=== PATIENT | male | born 1940 | race Caucasian/White ===

== ENCOUNTER 2020-02-10 15:55 | Inpatient (IN) | payer MEDICARE, OTHER ==
[~2020-02-10] VITALS: Ht 170.2 cm; Wt 88.5 kg
--- NOTE | 2020-02-10 16:23 | NUR ---
BIBS FROM HOME TO ER BED 5. AAOX3. NOT IN RESP DISTRESS. BROUGHT IN FOR FEVER THAT STARTED THIS MORNING. PT IS NOTED WITH 101.2 TEMP UPON ASSESSMENT. SON REPORTS THAT PT HAS TOOK TYLENOL @ NOON TIME. PT IS ALSO NOTED WITH COUGH. MD WAS AT THE BEDSIDE FOR EVAL. ORDERS RECEIVED, NOTED AND CARRIED OUT. IV LINE ESTABLISHED ON L HAND 18G. BLOOD DRAWN AND GIVEN TO ADMINISTRATIVE SERVICES ASSISTANT AT BEDSIDE.
--- NOTE | 2020-02-10 16:53 | NUR ---
URINE COLLECTED AND SENT TO LAB
[2020-02-10 16:55] LABS: BASOPHILS % (AUTO) 0.1 % (0.0-2.0); EOSINOPHILS % (AUTO) 0.5 % (0.0-6.0); HEMATOCRIT 27 % (39-51); HEMOGLOBIN 9.2 g/dL (13.5-17.5); LYMPHOCYTES # (AUTO) 0.4 /CMM (0.8-4.8); LYMPHOCYTES % (AUTO) 20.9 % (20.0-44.0); MEAN CORPUSCULAR HGB CONC 34 g/dl (31.0-36.0); MEAN CORPUSCULAR VOLUME 94 fL (80-96); MONOCYTES # (AUTO) 0.2 /CMM (0.1-1.30); MONOCYTES % (AUTO) 8.5 % (2.0-12.0); NEUTROPHILS # (AUTO) 1.4 /CMM (1.8-8.9); RED BLOOD CELL COUNT(AUTO) 2.88 MIL/uL (4.5-6.0)
[2020-02-10] MEDS ORDERED: VANCOMYCIN 1 GM in IV D5W 250 ML IV ONE (17:00)
[2020-02-10] MEDS ORDERED: PIPERACILLIN /TAZOBACTAM 3.375 G in IV D5W 50 ML IV ONE (17:00)
[2020-02-10] MEDS ORDERED: ACETAMINOPHEN ES 500 MG TABLET PO ONE (17:00)
[2020-02-10] MEDS ORDERED: TELM80TA9 PO (17:03)
[2020-02-10] MEDS ORDERED: AMLO10TA7 PO (17:03)
[2020-02-10] MEDS ORDERED: ISOS60TA4 PO (17:03)
[2020-02-10] MEDS ORDERED: FERR325T24 PO (17:03)
[2020-02-10] MEDS ORDERED: POTA8TAB3 PO (17:03)
[2020-02-10] MEDS ORDERED: ROSU40TA23 PO (17:03)
[2020-02-10] MEDS ORDERED: CLOP75TA15 PO (17:03)
[2020-02-10] MEDS ORDERED: GLIM2TAB31 PO (17:03)
[2020-02-10] MEDS ORDERED: SERT50TA12 PO (17:03)
[2020-02-10] MEDS ORDERED: ACETAMINOPHEN ES 500 MG TABLET ONE (17:04)
[2020-02-10 17:16] LABS: PLATELET COUNT (AUTO) 40 /CMM (150-450)
[2020-02-10 17:24] LABS: BILIRUBIN,URINE Negative (NEGATIVE); BLOOD, URINE Moderate Ery/uL (NEGATIVE); COLOR,URINE Yellow (YELLOW); KETONES,URINE Negative (NEGATIVE); LEUKOCYTE ESTERASE ,URINE Negative (NEGATIVE); NITRITE, URINE Negative (NEGATIVE); PH,URINE 5.5 (5.0-8.0); PROTEIN,URINE 100 mg/dl (NEGATIVE); UGLUCOSE Negative (NEGATIVE); UROBILINOGEN,URINE 0.2 EU/dL (0.2)
[2020-02-10 17:25] LABS: CALCIUM, SERUM 7.2 mg/dL (8.5-10.1); CARBON DIOXIDE 13 mmol/L (21-32); CHLORIDE 110 mmol/L (98-107); CREATININE 4.5 mg/dL (0.6-1.3); GLUCOSE 154 mg/dL (74-106); POTASSIUM 3.9 mmol/L (3.5-5.1); SODIUM SERUM 140 mmol/L (136-145); UREA NITROGEN, BLOOD 43 mg/dL (7-18)
[2020-02-10 17:28] LABS: APPEARANCE,URINE SLIGHTLY HAZY (CLEAR)
--- NOTE | 2020-02-10 17:28 | NUR ---
CALLED NURSING SUP FOR TELE BED.
[2020-02-10 17:31] LABS: ALANINE AMINOTRANSFERASE 14 U/L (12-78); ALBUMIN 3.1 g/dL (3.4-5.0); ALKALINE PHOSPHATASE 67 U/L (46-116); ASPARTATE AMINOTRANSFERASE 22 U/L (15-37); BILIRUBIN,DIRECT 0.1 mg/dL (0.0-0.2); BILIRUBIN,TOTAL 0.3 mg/dL (0.2-1.0); TOTAL PROTEIN, SERUM 7.7 g/dL (6.4-8.2)
[2020-02-10 17:51] LABS: BACTERIA,URINE Few /HPF (None Seen); SQUAMOUS EPITHELIAL CELL,UR Few /HPF (None Seen)
[2020-02-10 17:52] LABS: WBC,URINE 0-2 /HPF (0-3)
[2020-02-10] MEDS ORDERED: Z GUARD REMEDY 2 OZ OINT TP PRN (18:30)
[2020-02-10] MEDS ORDERED: TEMAZEPAM 7.5 MG CAPSULE PO PRN (18:30)
[2020-02-10] MEDS ORDERED: MAGNESIUM HYDROXIDE 30 ML UDC PO PRN (18:30)
[2020-02-10] MEDS ORDERED: ONDANSETRON HCL/PF 4 MG/2 ML VIAL IVP PRN (18:30)
[2020-02-10] MEDS ORDERED: MORPHINE SULFATE INJ 2 MG/ML DISP.SYRIN IV PRN (18:30)
[2020-02-10] MEDS ORDERED: MAG HYDROX/AL HYDROX/SIMETH 30 ML UDC PO PRN (18:30)
[2020-02-10] MEDS ORDERED: HYDROCODONE/APAP 5/325MG TABLET PO PRN (18:30)
[2020-02-10] MEDS ORDERED: DEXTROSE 50%-WATER 50 ML DISP.SYRIN IV PRN (19:00)
[2020-02-10 19:46] LABS: BAND % (MANUAL) 1 % (0.0-5.0); LYMPHOCYTES % (MANUAL) 24 % (16-48); MONOCYTES % (MANUAL) 2 % (0-11.0); NEUTROPHILS % (MANUAL) 73 (42-76)
--- NOTE | 2020-02-10 19:59 | NUR ---
PT TO RADIOLOGY ON [facility]
--- NOTE | 2020-02-10 20:04 | NUR ---
BED ASSIGNMENT 207
--- NOTE | 2020-02-10 20:12 | NUR ---
REPORT GIVEN TO MARLEN BANERJEE FOR RAMIRO.
[2020-02-10 20:30] VITALS: BP 126/64
--- NOTE | 2020-02-10 20:30 | NUR ---
ADDING MACHINE SERVICER ADMITTING NOTE: Received report from ER nurse, Niall. Patient admitted in the unit at 2030 via gurney. Patient awake, alert, and oriented x4. Indonesian speaking, understand some Kyrgyz. Able to make needs known. Oriented patient to room and taught patient how to use the call light. Patient was able to verbally confirm the teaching. Patient breathing well on Oxygen, 4L nasal canula. No respiratory distress noted. Noted IV access on left hand, 20 gauge, patent, dressing is intact, no redness or infiltration. Noted left sided upper and lower extremity weakness. On external cardiac monitoring. Patient refused to remove home cloths. Safety precaution is in place, bed is in the lowest level, brakes are on, alarm is on, side rails x2 are up, and call light is within reach. Will continue to monitor.
--- NOTE | 2020-02-10 20:37 | NUR ---
PT TRANSPORTED TO UNIT ON GURNEY WITH EMT AND RN AT BEDSIDE W/ ACLS PROTOCOL. NAD NOTED DURING TRANSPORT.
[2020-02-10] MEDS ORDERED: VANCOMYCIN 1.25 GM in IV D5W 250 ML IV SCH (21:00)
[2020-02-10] MEDS: PIPERACILLIN /TAZOBACTAM 2.25 G in IV D5W 50 ML IV SCH (21:22)
[2020-02-10] MEDS ORDERED: ATORVASTATIN 40 MG TABLET PO SCH (22:00)
[2020-02-10] MEDS: VANCOMYCIN 1.25 GM in IV D5W 250 ML IV SCH (22:02)
[2020-02-10] MEDS: BLOOD SUGAR DIAGNOSTIC 1 EACH STRIP IN SCH (22:37)
[2020-02-10] MEDS: INSULIN REGULAR, HUMAN 100 UNIT/ML 3 ML VIAL SQ PRN (22:38)
--- NOTE | 2020-02-10 22:40 | NUR ---
CHARACTER ARTIST NTOE: Patient glucose 121. Hold insulin per sliding scale.
[2020-02-11] VITALS (7 sets, daily range): BP systolic 118–147; BP diastolic 58–76
[2020-02-11] MEDS: PIPERACILLIN /TAZOBACTAM 2.25 G in IV D5W 50 ML IV SCH ×3 (05:07→20:55)
[2020-02-11] MEDS: BLOOD SUGAR DIAGNOSTIC 1 EACH STRIP IN SCH ×4 (06:31→22:07)
[2020-02-11] MEDS: INSULIN REGULAR, HUMAN 100 UNIT/ML 3 ML VIAL SQ PRN ×2 (06:32→18:37)
--- NOTE | 2020-02-11 06:32 | NUR ---
GRATING MACHINE OPERATOR NOTE: Patient glucose 120. Hold insulin per sliding scale.
[2020-02-11 06:40] LABS: BASOPHILS % (AUTO) 0.1 % (0.0-2.0); EOSINOPHILS % (AUTO) 0.5 % (0.0-6.0); HEMATOCRIT 26 % (39-51); HEMOGLOBIN 8.5 g/dL (13.5-17.5); LYMPHOCYTES # (AUTO) 0.9 /CMM (0.8-4.8); LYMPHOCYTES % (AUTO) 27.7 % (20.0-44.0); MEAN CORPUSCULAR HGB CONC 33 g/dl (31.0-36.0); MEAN CORPUSCULAR VOLUME 92 fL (80-96); MONOCYTES # (AUTO) 0.2 /CMM (0.1-1.30); MONOCYTES % (AUTO) 5.1 % (2.0-12.0); NEUTROPHILS # (AUTO) 2.1 /CMM (1.8-8.9); NEUTROPHILS % (AUTO) 66.6 % (43.0-81.0); RED BLOOD CELL COUNT(AUTO) 2.78 MIL/uL (4.5-6.0); WHITE BLOOD COUNT (AUTO) 3.1 K/uL (4.3-11.0)
[2020-02-11 06:54] LABS: PLATELET COUNT (AUTO) 35 /CMM (150-450)
--- NOTE | 2020-02-11 07:00 | NUR ---
MEDICAL DIAGNOSTIC RADIOGRAPHER NOTE: Geeta from lab called for critical lab value. Patient platelet 35. Made Robbie SHRESTHA aware, Magen. Awaiting orders.
[2020-02-11 07:06] LABS: CALCIUM, SERUM 7.1 mg/dL (8.5-10.1); CARBON DIOXIDE 15 mmol/L (21-32); CHLORIDE 109 mmol/L (98-107); CREATININE 4.8 mg/dL (0.6-1.3); GLUCOSE 145 mg/dL (74-106); MAGNESIUM 1.9 mg/dL (1.8-2.4); PHOSPHORUS 4.7 mg/dL (2.5-4.9); POTASSIUM 3.7 mmol/L (3.5-5.1); SODIUM SERUM 139 mmol/L (136-145); UREA NITROGEN, BLOOD 46 mg/dL (7-18)
--- NOTE | 2020-02-11 07:15 | NUR ---
BOWLING ALLEY ATTENDANT NOTE: Called Epic exchange and spoke to Dr. Urban regarding patient platelet at 35. Dr. Urban stated no orders at this time and will monitor his platelet.
[2020-02-11 07:17] LABS: CHOLESTEROL 78 mg/dL (<200); HDL CHOLESTEROL 25 mg/dL (40-60); LDL 45 mg/dL (0-99); THYROID STIMULATING HORMONE 0.262 uIU/mL (0.358-3.74); TRIGLYCERIDES 66 mg/dL (30-150)
--- NOTE | 2020-02-11 07:17 | NUR ---
COMMODITY MANAGER CLOSING NOTE: Patient in bed sleeping comfortably. Patient is on Oxygen 4L via nasal canula. Patient is breathing well and is in no apparent respiratory distress. Safety precaution is in place, bed is in the lowest level, bed is locked, side rails x2 are up, bed alarm is on, and call light is within reach. Will endorse to next shift.
--- NOTE | 2020-02-11 07:20 | NUR ---
RN OPENING NOTE: Patient received in bed. Awake, alert and oriented x4. Mainly Latvian/Jordanian speaking but able to relay basic needs in Stateless. Isolation precaution in place to R/O COVID-19. Patient on cont. o2 via NC @ 4lpm and being tolerated well. No SOB and not in respiratory distress, saturation noted at 96%. Tele monitor showing 1st degree AV block @ 78bpm. IV site clean, dry, patent and intact. No pain noted nor reported. Call light in reach. Bed locked, low and at semi-vidal's position. Side rails up x3. Safety ensured and observed. Bed alarm on. Will continue to monitor.
[2020-02-11] MEDS: PANTOPRAZOLE 40 MG TABLET.DR PO SCH (08:00)
[2020-02-11] MEDS ORDERED: FERROUS SULFATE (325 MG) 325 MG/TAB TABLET PO SCH (09:00)
[2020-02-11] MEDS ORDERED: CLOPIDOGREL BISULFATE 75 MG TABLET PO SCH (09:00)
[2020-02-11] MEDS: SERTRALINE HCL 50 MG TABLET PO SCH (10:06)
[2020-02-11] MEDS: AMLODIPINE BESYLATE 10 MG TABLET PO SCH (10:08)
[2020-02-11] MEDS: ISOSORBIDE MONONITRATE (30MG) 30 MG TAB.SR.24H PO SCH (10:08)
[2020-02-11 11:06] LABS: THYROID STIMULATING HORMONE 0.264 uIU/mL (0.358-3.74)
[2020-02-11 11:08] LABS: C-REACTIVE PROTEIN 15.4 mg/dL (0.0-0.9)
--- NOTE | 2020-02-11 12:00 | NUR ---
RN NOTE: Patient was seen by Vinicius Urban DNP. Patient's physician consult orders were put in for him to be further evaluated. Patient's son made aware of the current treatment plans and acknowledged information.
--- NOTE | 2020-02-11 18:45 | NUR ---
rn note: Seen by Sherrie Wright DNP for ID consult. Spoke to son and obtained consent for Convalescent Plasma administration. Angel Kris (Son) called through phone at bedside. Both patient and Son verbalized agreement on administration of CP. consent for BT signed as well as CP form completed to be submitted to pharmacy
--- NOTE | 2020-02-11 18:52 | NUR ---
RN CLOSING NOTE: Patient remains in bed. Awake, alert and oriented x4. Covid-19 resulted and patient is positive. Vinicius Urban, ROEL informed and Angel (son) informed as well. Patient and son are aware about current treatment plan in place. Patient on cont. o2 via NC @ 4lpm and being tolerated well. No SOB and not in respiratory distress at the moment saturation noted at 93%. Tele monitor showing 1st degree AV block @ in the 90s IV site clean, dry, patent and intact. No pain noted nor reported. Call light in reach. Bed locked, low and at semi-vidal's position. Side rails up x3. Safety ensured and observed. Bed alarm on. Due medications given. Treatment given as ordered. Will endorse to oncoming shift for RAMIRO.
[2020-02-11] MEDS: IV NS 0.9% 1,000 ML IV PRN (19:00)
--- NOTE | 2020-02-11 19:30 | NUR ---
DISTRICT WIRE CHIEF NOTES RECEIVED ON BED,A/O X4,SPEAK AMERICAN WITH LITTLE PANAMANIAN,BREATHING REGULAR,NOT IN ANY FORM OF RESPIRATORY DISTRESS.O2 IN USED AT 4L/NC TO KEEP O2 SAT ABOVE 90%.SALINE LOCK RIGHT HAND INTACT AND PATENT.STARTED ON IVF NS AT 125ML/HR RATE WITH ORDER.NOTED RESIDUAL ON LEFT ARM DUE TO HX OF CVA.FALL RISK,BED ALARM,BED ON LOWEST POSITION AND LOCKED.ISOLATION PRECAUTION FOR COVID POSITIVE.CALL LIGHT IN REACH,NEEDS ANTICIPATED.
[2020-02-11] MEDS: ACETAMINOPHEN 325 MG TABLET PO PRN (20:55)
--- NOTE | 2020-02-11 20:55 | NUR ---
STATISTICAL METHODS TEACHER NOTES ORAL TEMP 0F 99.9.SKIN WARM TO THE TOUCH,MEDICATED WITH TYLENOL 650MG PO ORDERED PRN FOR FEVER.
--- NOTE | 2020-02-11 21:15 | NUR ---
LACE WEAVER NOTES ACCU-CHECK BLOOD SUGAR CHECK 130,NO INSULIN COVERAGE.
[2020-02-12] VITALS (19 sets, daily range): BP systolic 67–155; BP diastolic 32–70
--- NOTE | 2020-02-12 01:30 | NUR ---
SUPERVISOR MOTOR VEHICLE ASSEMBLY NOTES FOLLOW UP WITH LAB BLOOD BANK,CONVALESCENT PLASMA IS NOT AVAILABLE YET
--- NOTE | 2020-02-12 03:30 | NUR ---
MARKET ANALYSIS DIRECTOR NOTES ORAL TEMP OF 100.0,MEDICATED WITH TYLENOL 650MG PO ORDERED FOR INCREASED TEMP
[2020-02-12] MEDS: ACETAMINOPHEN 325 MG TABLET PO PRN (03:44)
[2020-02-12] MEDS: PIPERACILLIN /TAZOBACTAM 2.25 G in IV D5W 50 ML IV SCH ×3 (04:48→20:08)
[2020-02-12] MEDS: BLOOD SUGAR DIAGNOSTIC 1 EACH STRIP IN SCH ×4 (05:15→23:17)
[2020-02-12] MEDS: INSULIN REGULAR, HUMAN 100 UNIT/ML 3 ML VIAL SQ PRN ×2 (05:17→23:32)
--- NOTE | 2020-02-12 05:20 | NUR ---
RADIOISOTOPE TECHNOLOGIST NOTES ACCU-CHECK BLOOD SUGAR CHECK 131,PATIENT REFUSED 2 UNITS SLIDING SCALE COVERAGE.IVF INFUSING
--- NOTE | 2020-02-12 06:27 | NUR ---
SUPERVISOR TOY ASSEMBLY NOTES ON BED A/O X3-4,BREATHING NON LABORED,O2 IN USED AT 4L/NC TO KEEP O2 SAT ABOVE 90%,93% AT THE MOMENT.IVF INFUSING,LATEST ORAL TEMP OF 99.2.ENCOURAGED ORAL FLUIDS.NO FALL,NO INJURY.HOB ELEVATED.CALL LIGHT IN REACH,NEEDS ATTENDED.WILL ENDORSE TO SORA[facility] GEE FOR RAMIRO.
--- NOTE | 2020-02-12 06:55 | NUR ---
CABLE REPAIRER NOTES FOLLOWED UP WITH BLOOD BANK,SPOKE TO SIGN REGARDING CONVALESCENT PLASMA,AND SHE SAID NO DELIVERY YET FROM [facility],ENDORSE TO [facility] GEE.
--- NOTE | 2020-02-12 07:30 | NUR ---
RN Opening Note Received patient in bed, AO x 3-4, Barbadian speak, able to responds all stimuli. Noticed wet cough when patient swallowed meds, water. Respiratory even and unlabored with oxygen at 4LPM via n/c. Skin is warm to touch, keep clean.dry, intact IV site on right hand, running NS at 125ml/hr. Kept bed in lock with elevated HOB, for ensure airway and aspiration precaution, and remain lower position of bed fed safety. Will continue to monitor.
[2020-02-12] MEDS: PANTOPRAZOLE 40 MG TABLET.DR PO SCH (07:39)
--- NOTE | 2020-02-12 08:20 | NUR ---
Patient noticed desaturate oxygen 80-82 % with simple mask at 4LPMs, switch to NBM at 15L O2sat 92-95%, also plt 43, troponin 0.705, and failed swallow eval this morning, DNP/Vinicius made cowan above, new order: patient NPO and transfer to ICU but there's no open bed at ICU, will hold patient in MS 2 for while.
[2020-02-12 08:30] LABS: BASOPHILS % (AUTO) 0.1 % (0.0-2.0); EOSINOPHILS % (AUTO) 0.8 % (0.0-6.0); HEMATOCRIT 27 % (39-51); LYMPHOCYTES % (AUTO) 29.9 % (20.0-44.0); MEAN CORPUSCULAR HGB CONC 34 g/dl (31.0-36.0); MEAN CORPUSCULAR VOLUME 91 fL (80-96); MONOCYTES # (AUTO) 0.2 /CMM (0.1-1.30); MONOCYTES % (AUTO) 5.6 % (2.0-12.0); NEUTROPHILS % (AUTO) 63.6 % (43.0-81.0); RED BLOOD CELL COUNT(AUTO) 2.93 MIL/uL (4.5-6.0); WHITE BLOOD COUNT (AUTO) 3.2 K/uL (4.3-11.0)
[2020-02-12] MEDS: IV NS 0.9% 1,000 ML IV PRN (08:51)
[2020-02-12 08:55] LABS: PLATELET COUNT (AUTO) 43 /CMM (150-450)
[2020-02-12] MEDS: ISOSORBIDE MONONITRATE (30MG) 30 MG TAB.SR.24H PO SCH (09:00)
[2020-02-12] MEDS: AMLODIPINE BESYLATE 10 MG TABLET PO SCH (09:00)
[2020-02-12] MEDS: SERTRALINE HCL 50 MG TABLET PO SCH (09:00)
[2020-02-12 09:04] LABS: FERRITIN 314 ng/mL (8-388); THYROID STIMULATING HORMONE 0.274 uIU/mL (0.358-3.74)
[2020-02-12 09:15] LABS: IRON, SERUM 13 ug/dl (50-175); TOTAL IRON BINDING CAPACITY 212 ug/dl (250-450)
[2020-02-12] MEDS: DEXAMETHASONE SOD PHOSPHATE 10 MG/ML VIAL IV SCH (09:54)
[2020-02-12 10:38] LABS: ALANINE AMINOTRANSFERASE 16 U/L (12-78); ALBUMIN 2.9 g/dL (3.4-5.0); ALKALINE PHOSPHATASE 65 U/L (46-116); ASPARTATE AMINOTRANSFERASE 33 U/L (15-37); BILIRUBIN,TOTAL 0.3 mg/dL (0.2-1.0); CARBON DIOXIDE 13 mmol/L (21-32); CHLORIDE 110 mmol/L (98-107); CREATININE 5.1 mg/dL (0.6-1.3); GLUCOSE 141 mg/dL (74-106); MAGNESIUM 1.9 mg/dL (1.8-2.4); POTASSIUM 4.1 mmol/L (3.5-5.1); SODIUM SERUM 142 mmol/L (136-145); UREA NITROGEN, BLOOD 54 mg/dL (7-18)
[2020-02-12 10:48] LABS: C-REACTIVE PROTEIN 19.8 mg/dL (0.0-0.9)
[2020-02-12] MEDS: AZITHROMYCIN 500 MG in IV D5W 250 ML IV SCH (15:16)
[2020-02-12] MEDS: SOD FERRIC GLUC 125 MG in IV NS 0.9% 100 ML IV SCH (16:09)
[2020-02-12] MEDS ORDERED: ACETAMINOPHEN 650 MG/20.3 ML UDC PO ONE (17:30)
[2020-02-12] MEDS ORDERED: diphenhydrAMINE HCL 50 MG/ML VIAL IV ONE (17:30)
[2020-02-12] MEDS ORDERED: TOCILIZUMAB 400 MG in IV NS 0.9% 80 ML IV ONE (18:30)
--- NOTE | 2020-02-12 18:40 | NUR ---
RN Closing Note Patient in bed resting, starting new IV Actemra:monitor closely, vital sign stable, bp-136/70, p-71, r-20, O2sat 93% with NRB oxygen at 15Ls. Pt s/p plasma x 1 unit, no reaction:fever, rash observed. Skin is warm to touch, keep clean/dry, intact IV site on left hand 18G running NS 125ml. No distress respiratory, keep bed in locked with elevated HOB for ensure airway and aspiration precaution. Call light within reach, endorsed night shit above and monitor vital sign for IV Actemra.
--- NOTE | 2020-02-12 19:30 | NUR ---
NASCAR PIT CREW PERSON OPEN NOTES RECEIVED PATIENT LAYING IN BED. ON 15L NON REBREATHER MASK. IV IN L HAND IS PATENT AND INTACT. BED IS IN LOWEST LOCKED POSITION WITH SIDE RAILS UP X3, SEMI FOWLERS. CALL LIGHT IS WITHIN REACH. WILL CONTINUE TO MONITOR.
--- NOTE | 2020-02-12 20:57 | NUR ---
BOX HINGE AND LOCK ATTACHER NOTES PATIENT TRANSFERRED TO ICU, ROOM 265. EVENTS THAT TOOK PLACE: 2024: CALLED CODE BLUE, CPR PERFORMED. 2027: MD ARRIVED, RT TEAM CAME 2035: MED NURSE ARRIVED 2037: EPI #1 GIVEN 2039: PULSE CHECK - NO PULSE 3: EPI #2 GIVEN 2043: CALCIUM CHLORIDE GIVEN 2044: MD STATED PATIENT'S READING WAS ASYSTOLE. 2045: PULSE PRESENT, PATIENT INTUBATED BY MD 2056: PT TRANSFERRED TO ICU, ROOM 265
[2020-02-12] MEDS ORDERED: LINEZOLID RTU BAG 600 MG in PREMIX 1 EA IV SCH (21:00)
--- NOTE | 2020-02-12 21:00 | NUR ---
PRODUCT DEVELOPMENT ENGINEER NOTES REPORT GIVEN TO MARLEN KIMBALL FOR RAMIRO.
--- NOTE | 2020-02-12 21:15 | NUR ---
RT NOTES PT ORALLY INTUBATED BY ER WITH 7.5 ETT @25CM AT THE LIP LINE. COLOR CHANGE NOTED ON CO2 DETECTOR. MIST IN TUBE NOTED. EQUAL CHEST RISE NOTED. PT TRANSPORTED TO ICU AND PLACED ON [facility] VENT PER MD ON ORDERED SETTINGS AC MODE, RATE 20, VT 450, FIO2 100%, PEEP +5. INSTRUCTOR WATCH ASSEMBLY DONE. PT SUCTIONED. ALARMS SET AND AUDIBLE. VENT PLUGGED INTO TO RED OUTLET. ABG TO BE DONE IN AN HOUR. WILL CONT TO MONITOR. Addendum: 02/13/20 at 0443 by LUCAS SR RT Amended: Links added.
--- NOTE | 2020-02-12 21:15 | NUR ---
ROADWAY DESIGNER NOTES BP 83/48, HR 58 BPM, NO ORDER FOR PRESSOR SUPPORT, RECENTLY INTUBATED BEFORE TRANSFER TO ICU. DR GOMEZ PAGED TO NOTIFY REGARDING LOW BLOOD PRESSURE, AWAITING CALL BACK.
[2020-02-12] MEDS ORDERED: NOREPINEPHRINE 8MG/250ML RTU 250 ML IV ONE (21:41)
[2020-02-12] MEDS: NOREPINEPHRINE 8 MG in IV NS 0.9% 242 ML IV PRN (21:57)
[2020-02-12] MEDS ORDERED: PROPOFOL 100 ML IV PRN (22:00)
[2020-02-12 22:02] LABS: BASOPHILS % (AUTO) 0.3 % (0.0-2.0); EOSINOPHILS % (AUTO) 0.1 % (0.0-6.0); HEMATOCRIT 35 % (39-51); LYMPHOCYTES # (AUTO) 4.3 /CMM (0.8-4.8); LYMPHOCYTES % (AUTO) 49.2 % (20.0-44.0); MEAN CORPUSCULAR HGB CONC 29 g/dl (31.0-36.0); MEAN CORPUSCULAR VOLUME 106 fL (80-96); MONOCYTES # (AUTO) 0.2 /CMM (0.1-1.30); NEUTROPHILS # (AUTO) 4.2 /CMM (1.8-8.9); NEUTROPHILS % (AUTO) 48.4 % (43.0-81.0); PLATELET COUNT (AUTO) 90 /CMM (150-450); RED BLOOD CELL COUNT(AUTO) 3.27 MIL/uL (4.5-6.0); WHITE BLOOD COUNT (AUTO) 8.8 K/uL (4.3-11.0)
[2020-02-12 22:26] LABS: ALANINE AMINOTRANSFERASE 43 U/L (12-78); ALBUMIN 2.5 g/dL (3.4-5.0); ALKALINE PHOSPHATASE 82 U/L (46-116); ASPARTATE AMINOTRANSFERASE 96 U/L (15-37); BILIRUBIN,DIRECT 0.1 mg/dL (0.0-0.2); BILIRUBIN,TOTAL 0.2 mg/dL (0.2-1.0); CALCIUM, SERUM 8.2 mg/dL (8.5-10.1); CHLORIDE 111 mmol/L (98-107); CREATININE 6.2 mg/dL (0.6-1.3); GLUCOSE 262 mg/dL (74-106); POTASSIUM 5.3 mmol/L (3.5-5.1); SODIUM SERUM 142 mmol/L (136-145); TOTAL PROTEIN, SERUM 7.4 g/dL (6.4-8.2); UREA NITROGEN, BLOOD 61 mg/dL (7-18)
[2020-02-12 22:35] LABS: ABG BASE EXCESS -33.7 mmol/L; ABG OXYGEN SATURATION 76.8 % (92.0-98.5); ABG PH 6.545 (7.350-7.450); ABG PO2 73.4 mmHg (75.0-100.0); AaDO2 580.6 mmHg; COHb 0.3 % (0.5-1.5); MetHb 0.4 % (0.0-1.5); O2Hb 76.3 % (94.0-97.0); SITE, ABG Right Brachial
[2020-02-12 22:40] LABS: CARBON DIOXIDE 6 mmol/L (21-32)
--- NOTE | 2020-02-12 22:42 | NUR ---
RN NOTES VISITED BY SON ZAINAB AND GUILLERMO GOT CONSENT FOR PICC LINE INSERTION. RISK AND BENEFITS EXPLAINED.
[2020-02-12] MEDS ORDERED: SODIUM BICARBONATE SYR 50 MEQ/50 ML DISP.SYRIN ONE (22:50)
[2020-02-12] MEDS ORDERED: Sodium Bicarbonate 150 MEQ in IV 1/2NS 1000 ML 1,000 ML IV PRN (23:00)
--- NOTE | 2020-02-12 23:00 | NUR ---
RN NOTES 2104 PM - TRANSFERRED CODE BLUE PATIENT FROM [place] [id number], UNRESPONSIVE, WITH LOW SATURATION. PATIENT IS + COVID. RECEIVED WITH EYES OPEN NON RESPONSIVE INTUBATED WITH ETT 7.5 AND 25 CM AT LIPLINE CONNECTED TO VENT SETTING AC 20 TV 400 FIO2 100% PEEP 5 . SATURATION 60'S. JUNCTIONAL WITH BBB ON TELE MONITOR AND CHANGE TO SR WITH 3RD DEGREE AVB. BP WENT LOW SBP ON 70'S LEVOPHED STARTED PROTOCOL. ALVAREZ CATH INSERTED. IV SITE ON LH AND RH G 18 ARE INTACT AND PATENT NS @ 125 ML/HR CONTINUE. KEPT PT CLEAN AND DRY. WILL CLOSELY MONITOR.
[2020-02-12 23:06] LABS: LYMPHOCYTES % (MANUAL) 53 % (16-48); MONOCYTES % (MANUAL) 2 % (0-11.0); NEUTROPHILS % (MANUAL) 45 (42-76)
[2020-02-12] MEDS: Sodium Bicarbonate 150 MEQ in IV D5W 1,000 ML IV PRN (23:06)
[2020-02-12] MEDS: VANCOMYCIN 1.25 GM in IV D5W 250 ML IV SCH (23:06)
[2020-02-13] VITALS (98 sets, daily range): BP systolic 39–175; BP diastolic 21–102
--- NOTE | 2020-02-13 02:18 | NUR ---
RN NOTES INFORMED DR. GOMEZ REGARDING CRITICAL LEVEL OF PTT 134.4 AND TROPONIN 3.805 MD AWARE REGARDING HGB AND PLATELETS. WITH NEW ORDER TO START HEPARIN DRIP NOTED AND CARRIED OUT ORDERS..
[2020-02-13] MEDS ORDERED: HEPARIN SODIUM, PORCINE 5000 UNITS/1 ML VIAL IV ONE (02:30)
[2020-02-13] MEDS ORDERED: HEPARIN INFUSION/D5W 500 ML IV ONE (02:36)
[2020-02-13] MEDS: HEPARIN INFUSION/D5W 500 ML IV PRN (02:50)
[2020-02-13] MEDS ORDERED: NOREPINEPHRINE 4 MG/4 ML AMPUL IV ONE (02:56)
[2020-02-13] MEDS: NOREPINEPHRINE 8 MG in IV NS 0.9% 242 ML IV PRN ×3 (03:05→11:30)
[2020-02-13] MEDS ORDERED: SODIUM BICARBONATE SYR 50 MEQ/50 ML DISP.SYRIN ONE ×2 (03:20→03:21)
[2020-02-13] MEDS ORDERED: SODIUM BICARBONATE SYR 50 MEQ/50 ML DISP.SYRIN IV ONE ×2 (03:30→17:49)
[2020-02-13 05:30] LABS: BASOPHILS % (AUTO) 0.1 % (0.0-2.0); HEMATOCRIT 30 % (39-51); HEMOGLOBIN 9.5 g/dL (13.5-17.5); LYMPHOCYTES # (AUTO) 1.9 /CMM (0.8-4.8); LYMPHOCYTES % (AUTO) 14.1 % (20.0-44.0); MEAN CORPUSCULAR HGB CONC 32 g/dl (31.0-36.0); MEAN CORPUSCULAR VOLUME 96 fL (80-96); MONOCYTES # (AUTO) 0.3 /CMM (0.1-1.30); MONOCYTES % (AUTO) 2.3 % (2.0-12.0); NEUTROPHILS # (AUTO) 11.4 /CMM (1.8-8.9); NEUTROPHILS % (AUTO) 83.5 % (43.0-81.0); PLATELET COUNT (AUTO) 84 /CMM (150-450); RED BLOOD CELL COUNT(AUTO) 3.09 MIL/uL (4.5-6.0); WHITE BLOOD COUNT (AUTO) 13.7 K/uL (4.3-11.0)
[2020-02-13 05:56] LABS: ALANINE AMINOTRANSFERASE 211 U/L (12-78); ALBUMIN 2.1 g/dL (3.4-5.0); ALKALINE PHOSPHATASE 119 U/L (46-116); ASPARTATE AMINOTRANSFERASE 590 U/L (15-37); BILIRUBIN,TOTAL 0.2 mg/dL (0.2-1.0); CALCIUM, SERUM 7.1 mg/dL (8.5-10.1); CARBON DIOXIDE 14 mmol/L (21-32); CHLORIDE 108 mmol/L (98-107); CREATININE 6.7 mg/dL (0.6-1.3); MAGNESIUM 2.5 mg/dL (1.8-2.4); SODIUM SERUM 141 mmol/L (136-145); TOTAL PROTEIN, SERUM 6.3 g/dL (6.4-8.2); UREA NITROGEN, BLOOD 68 mg/dL (7-18)
[2020-02-13] MEDS: PIPERACILLIN /TAZOBACTAM 2.25 G in IV D5W 50 ML IV SCH ×3 (06:14→21:12)
[2020-02-13 06:21] LABS: FERRITIN 8514 ng/mL (8-388)
[2020-02-13 06:37] LABS: GLUCOSE 413 mg/dL (74-106); PHOSPHORUS 12.6 mg/dL (2.5-4.9); POTASSIUM 7.6 mmol/L (3.5-5.1)
[2020-02-13 06:43] LABS: BAND % (MANUAL) 4 % (0.0-5.0); LYMPHOCYTES % (MANUAL) 15 % (16-48); MONOCYTES % (MANUAL) 5 % (0-11.0); NEUTROPHILS % (MANUAL) 76 (42-76)
--- NOTE | 2020-02-13 06:45 | NUR ---
RN NOTES RECEIVED A CALL FROM LAB FOR CRITICAL VALUE OF POTASSIUM 7.6, GLUCOSE 413 AND PHOSPORUS 12.6, CALL SUPERVISOR MOTORCYCLE REPAIR SHOP MD WAITING FOR CALL BACK.
[2020-02-13 07:06] LABS: IMMUNOGLOBULIN A, SERUM 390 mg/dL (61-437); IMMUNOGLOBULIN G, SERUM 1568 mg/dL (603-1613); IMMUNOGLOBULIN M, SERUM 186 mg/dL (15-143)
[2020-02-13] MEDS: PANTOPRAZOLE 40 MG TABLET.DR PO SCH (07:30)
--- NOTE | 2020-02-13 07:32 | NUR ---
RN NOTES SPOKE WITH DR. PRATT REGARDING CRITICAL VALUES OF TROPONIN, POTASSIUM, GLUCOSE AND PHOSPORUS (SEE CRITICAL LAB CHART). NNO AT THIS TIME.
[2020-02-13 08:18] LABS: ABG BASE EXCESS -20.9 mmol/L; ABG OXYGEN SATURATION 70.3 % (92.0-98.5); ABG PCO2 64.2 mmHg (35.0-45.0); ABG PH 6.889 (7.350-7.450); ABG PO2 42.4 mmHg (75.0-100.0); AaDO2 606.4 mmHg; MetHb 0.2 % (0.0-1.5); O2Hb 70.2 % (94.0-97.0); SITE, ABG Right Radial; VENT MODE, BG AC 20 400 100% +10
[2020-02-13] MEDS: SERTRALINE HCL 50 MG TABLET PO SCH (08:35)
[2020-02-13] MEDS: AMLODIPINE BESYLATE 10 MG TABLET PO SCH (08:35)
[2020-02-13] MEDS: DEXAMETHASONE SOD PHOSPHATE 10 MG/ML VIAL IV SCH (08:59)
[2020-02-13] MEDS ORDERED: DEXTROSE 50%-WATER 50 ML DISP.SYRIN IV PRN (09:00)
[2020-02-13 10:06] LABS: CALCIUM, SERUM 6.6 mg/dL (8.5-10.1); CARBON DIOXIDE 12 mmol/L (21-32); CHLORIDE 109 mmol/L (98-107); CREATININE 6.7 mg/dL (0.6-1.3); POTASSIUM 5.4 mmol/L (3.5-5.1); SODIUM SERUM 141 mmol/L (136-145); UREA NITROGEN, BLOOD 74 mg/dL (7-18)
[2020-02-13 10:24] LABS: GLUCOSE 511 mg/dL (74-106)
[2020-02-13] MEDS: Sodium Bicarbonate 150 MEQ in IV D5W 1,000 ML IV PRN (11:59)
[2020-02-13] MEDS: BLOOD SUGAR DIAGNOSTIC 1 EACH STRIP IN SCH ×5 (11:59→23:37)
[2020-02-13] MEDS: AZITHROMYCIN 500 MG in IV D5W 250 ML IV SCH (12:01)
[2020-02-13] MEDS: INSULIN REGULAR, HUMAN 100 UNIT/ML 3 ML VIAL SQ PRN ×2 (12:01→18:06)
[2020-02-13] MEDS ORDERED: CALCIUM CHLORIDE 1,000 MG/10 ML DISP.SYRIN ONE (12:03)
[2020-02-13] MEDS ORDERED: EPINEPHRINE (1:10,000) SYRINGE 1 MG/10 ML DISP.SYRIN ONE (12:03)
--- NOTE | 2020-02-13 12:06 | NUR ---
DR. PITTMAN NOTIFIED OF PT'S BLOOD GLUCOSE OF 421, 10 UNITS GIVEN PER SLIDING SCALE. NO NEW ORDERS GIVEN AT THIS TIME.
[2020-02-13] MEDS: NOREPINEPHRINE 32 MG in IV NS 0.9% 218 ML IV PRN (13:59)
[2020-02-13 14:45] LABS: BASOPHILS % (AUTO) 0.1 % (0.0-2.0); LYMPHOCYTES # (AUTO) 2.3 /CMM (0.8-4.8); MEAN CORPUSCULAR HGB CONC 30 g/dl (31.0-36.0); MONOCYTES # (AUTO) 0.4 /CMM (0.1-1.30); MONOCYTES % (AUTO) 1.6 % (2.0-12.0)
[2020-02-13 15:02] LABS: HEMATOCRIT 27 % (39-51); HEMOGLOBIN 8.1 g/dL (13.5-17.5); LYMPHOCYTES % (AUTO) 9.9 % (20.0-44.0); MEAN CORPUSCULAR VOLUME 101 fL (80-96); NEUTROPHILS # (AUTO) 20.8 /CMM (1.8-8.9); NEUTROPHILS % (AUTO) 88.4 % (43.0-81.0); PLATELET COUNT (AUTO) 125 /CMM (150-450); RED BLOOD CELL COUNT(AUTO) 2.71 MIL/uL (4.5-6.0); WHITE BLOOD COUNT (AUTO) 23.6 K/uL (4.3-11.0)
[2020-02-13 15:10] LABS: CALCIUM, SERUM 7.7 mg/dL (8.5-10.1); CARBON DIOXIDE 15 mmol/L (21-32); CHLORIDE 109 mmol/L (98-107); POTASSIUM 5.1 mmol/L (3.5-5.1); SODIUM SERUM 144 mmol/L (136-145); UREA NITROGEN, BLOOD 77 mg/dL (7-18)
[2020-02-13 15:13] LABS: ALANINE AMINOTRANSFERASE 216 U/L (12-78); ALBUMIN 1.8 g/dL (3.4-5.0); ALKALINE PHOSPHATASE 88 U/L (46-116); ASPARTATE AMINOTRANSFERASE 656 U/L (15-37); BILIRUBIN,TOTAL 0.2 mg/dL (0.2-1.0); TOTAL PROTEIN, SERUM 5.3 g/dL (6.4-8.2)
[2020-02-13 15:15] LABS: CREATININE 7.6 mg/dL (0.6-1.3); GLUCOSE 669 mg/dL (74-106)
[2020-02-13] MEDS: SOD FERRIC GLUC 125 MG in IV NS 0.9% 100 ML IV SCH (15:42)
--- NOTE | 2020-02-13 15:50 | NUR ---
PT CODED AT 1410, RN AT BEDSIDE, PT MONITOR BRIEFLY SHOWED ASYSTOLE THEN WENT TO SIDNEY IN THE 40'S, PT WAS PEA. PT OBTAINED ROSC AT 1424, SEE CODE BLUE SHEET. DEXTROSE AND INSULIN GIVEN DURING CODE. FOLLOW UP LABS SHOWED BLOOD GLUCOSE IN THE 600'S, D/T D50 GIVEN FOR ELEVATED POTASSIUM. MD'S AWARE. PER DR. PITTMAN FAMILY IS DECIDING IF THEY WILL WITHDRAWAL CARE. RN SPOKE TO ONE OF PT'S SONS, FAMILY HAVE NOT DECIDED OF THIS TIME. RN REINFORCED THAT PATIENT MAY CODE AGAIN. PT'S SON STATED UNDERSTANDING.
--- NOTE | 2020-02-13 16:20 | NUR ---
[facility] NOTIFIED OF PATIENT ON VENTILATOR AND GCS 3.
[2020-02-13 16:51] LABS: LYMPHOCYTES % (MANUAL) 13 % (16-48); MYELOCYTES % 1 % (0-0); NEUTROPHILS % (MANUAL) 86 (42-76)
[2020-02-13] MEDS ORDERED: EPINEPHRINE (1:10,000) SYRINGE 1 MG/10 ML DISP.SYRIN IVP ONE (17:49)
[2020-02-13] MEDS ORDERED: CALCIUM CHLORIDE 1,000 MG/10 ML DISP.SYRIN IV ONE (17:49)
--- NOTE | 2020-02-13 18:06 | NUR ---
DR. PITTMAN NOTIFIED OF BLOOD GLUCOSE OF 462C 10 UNITS GIVEN PER SLIDING SCALE.
--- NOTE | 2020-02-13 18:07 | NUR ---
RT NOTE PT REMAINS MECHANICALLY VENTILATED VIA 7.5 ETT 25 CM AT LIP. CUFF INFLATED. ETT SECURE. VENTILATOR SETTINGS PRESCRIBED. ALARMS SET PER PROTOCOL AND AUDIBLE. VENT PLUGGED IN TO RED OUTLET. AMBU BAG AT BED SIDE. Addendum: 02/13/20 at 1808 by HANDY MONZON RT Amended: Links added.
--- NOTE | 2020-02-13 18:57 | NUR ---
END OF SHIFT NOTE: PER PREVIOUSLY NOTED PT CODED THIS SHIFT X1, 2ND CODE IN 24 HOURS. PT REMAINS ON LEVOPHED GTT AT 0.5/MCG/KG/HR. HEPARIN GTT WAS STOPPED FOR 4.5 HOURS PER ORDERS FROM DR. HERRERA THEN RESUMED AT 1645 AT 950 UNITS/HR PER MD ORDERS. NEXT PTT WILL BE AT 2245 TONIGHT. BICARB GTT INFUSING PER MD ORDERS. NEW ORDER FOR INSULIN GTT SENT TO PHARMACY, AWAITING MED FROM PHARMACY, NON DKA PROTOCOL. ALL 3 OF PATIENTS SONS WERE ABLE TO VISIT FOR 5 MINUTES EACH, NOT ENTERING ROOM, LOOKING AT PATIENT THROUGH THE WINDOW. PER SONS THEY HAVE NOT DECIDED ON COMFORT MEASURES AND WANT EVERYTHING DONE AT THIS TIME. PT CHECKED ON HOURLY AND PRN BY NURSING STAFF.
--- NOTE | 2020-02-13 20:10 | NUR ---
RN NOTES STARTED PATIENT WITH INSULIN DRIP BS 513 MG/DL STARTED PATIENT ON ALGORITHM 1 ORDERED INSULIN REGULAR @ 6 UNIT/HR STARTED. PATIENT IS OBTUNDED. HEMODYNAMICALLY UNSTABLE. ON ETT AND VENT SETTING AC 20 TV 400 FIO2 100% PEEP 10 CONTINUE. SATURATION ON 76%. AFEBRILE. WITH LEVOPHED DRIP, BICARB AND HEPARIN DRIP TITRATED ORDERED. ISOLATION PRECAUTION FOR COVID + STRICTLY OBSERVE. KEPT PT CLEAN AND DRY. WILL TURN AND REPOSITION MUCH POSSIBLE.
[2020-02-13] MEDS: INS (REG) DRIP 100 U/100 ML NS IV PRN ×2 (20:22)
--- NOTE | 2020-02-13 21:50 | NUR ---
RECEIVED PT INTUBATED ON [facility] VENT. 7.5 ETT SECURED AT 25CM AT THE LIP. VENT ALARMS SET AND AUDIBLE. AMBU BAG AT BEDSIDE. SX'D AML AMT OF TINGED SECRETIONS. WILL MONITOR CLOSELY. Addendum: 02/13/20 at 2152 by SADI WEINSTEIN RT Amended: Links added.
[2020-02-14] VITALS (89 sets, daily range): BP systolic 56–142; BP diastolic 15–59
[2020-02-14] MEDS: NOREPINEPHRINE 32 MG in IV NS 0.9% 218 ML IV PRN ×2 (00:06→13:54)
[2020-02-14] MEDS: BLOOD SUGAR DIAGNOSTIC 1 EACH STRIP IN SCH ×22 (00:37→23:00)
--- NOTE | 2020-02-14 01:10 | NUR ---
RN NOTES CALLED AND SPOKE WITH DR. MOON REGARDING CRITICAL VALUE OF PTT >170 WITH NEW ORDER TO HOLD HEPARIN DRIP FOR 2H DEC. RATE BY 250 UNITS/HR AND FOLLOW PROTOCOL. CHECKED PTT AFTER 6H
[2020-02-14] MEDS: Sodium Bicarbonate 150 MEQ in IV D5W 1,000 ML IV PRN ×3 (02:52→23:00)
--- NOTE | 2020-02-14 03:15 | NUR ---
RN NOTES RESTARTED HEPARIN DRIP AT 700 U/HR. AFTER HOLDING FOR 2 HOURS PER MD ORDER. WILL CONTINUE TO CHECKED PTT AT 9 AM. NO ACTIVE BLEEDING NOTED.
[2020-02-14] MEDS: HEPARIN INFUSION/D5W 500 ML IV PRN (03:19)
[2020-02-14] MEDS: INS (REG) DRIP 100 U/100 ML NS IV PRN ×8 (03:57→22:06)
[2020-02-14] MEDS: PIPERACILLIN /TAZOBACTAM 2.25 G in IV D5W 50 ML IV SCH ×3 (04:07→20:33)
[2020-02-14 04:53] LABS: BASOPHILS % (AUTO) 0.1 % (0.0-2.0); HEMATOCRIT 26 % (39-51); HEMOGLOBIN 8.3 g/dL (13.5-17.5); LYMPHOCYTES # (AUTO) 0.8 /CMM (0.8-4.8); LYMPHOCYTES % (AUTO) 4.8 % (20.0-44.0); MEAN CORPUSCULAR HGB CONC 32 g/dl (31.0-36.0); MEAN CORPUSCULAR VOLUME 93 fL (80-96); MONOCYTES # (AUTO) 0.6 /CMM (0.1-1.30); MONOCYTES % (AUTO) 3.4 % (2.0-12.0); NEUTROPHILS % (AUTO) 91.7 % (43.0-81.0); PLATELET COUNT (AUTO) 113 /CMM (150-450); RED BLOOD CELL COUNT(AUTO) 2.81 MIL/uL (4.5-6.0); WHITE BLOOD COUNT (AUTO) 17.4 K/uL (4.3-11.0)
[2020-02-14] MEDS: PANTOPRAZOLE 40 MG TABLET.DR PO SCH (07:30)
--- NOTE | 2020-02-14 07:45 | NUR ---
ICU/RN: INITIAL NOTES,AM RECEIVED REPORT FROM NIGHT NURSE. PT NON RESPONSIVE, DOES NOT REACT TO PAINFUL STIMULI. PUPILS NON REACTIVE. ETT 7.5/25 AT THE LIP. PT S/P CODE BLUE. ON VENT SETTINGS ORDERED, LOW 02 SAT ON 100% FI02. SINUS ON TELE WITH 1ST DEGREE AB BLOCK. HEPARIN INFUSING AT 700UNITS/HR, ORDERS FOR PTT AT 0900. WILL ADJUST PER PROTOCOL. INSULIN INFUSING PER MD ORDERS. ON ALGORITHM 2. RIGHT UPPER ARM PICC LINE PATENT AND INTACT, PIVS PATENT, NO S/S OF INFECTION OR INFILTRATION NOTED. BICARB INFUSING PER ORDERS. ALL NEEDS WILL BE ATTENDED TO, SAFETY MEASURES TAKEN, BED IN LOW POSITION, SIDE RAILS UP, CALL LIGHT WITHIN REACH.
[2020-02-14 08:06] LABS: *SPE A/G RATIO 0.7 (0.7-1.7); *SPE ALBUMIN 2.8 g/dL (2.9-4.4); *SPE ALPHA-1-GLOBULIN 0.3 g/dL (0.0-0.4); *SPE ALPHA-2-GLOBULIN 0.8 g/dL (0.4-1.0); *SPE BETA GLOBULIN 0.9 g/dL (0.7-1.3); *SPE GLOBULIN, TOTAL 3.8 g/dL (2.2-3.9); *SPE M-SPIKE Not Observed g/dL (Not Observed); *SPEGAMMA GLOBULIN 1.7 g/dL (0.4-1.8)
[2020-02-14] MEDS: DEXAMETHASONE SOD PHOSPHATE 10 MG/ML VIAL IV SCH (08:16)
[2020-02-14] MEDS: AMLODIPINE BESYLATE 10 MG TABLET PO SCH (08:16)
--- NOTE | 2020-02-14 08:25 | NUR ---
ICU/RN: RECEIVED ORDERS FROM TO SWITCH TO ALGORITHM 3 DUE TO UNCONTROLLED BLOOD GLUCOSE. WILL FOLLOW THROUGH
[2020-02-14] MEDS: SERTRALINE HCL 50 MG TABLET PO SCH (08:29)
[2020-02-14 09:04] LABS: ABG BASE EXCESS -11.1 mmol/L; ABG OXYGEN SATURATION 87.7 % (92.0-98.5); ABG PCO2 51.3 mmHg (35.0-45.0); ABG PH 7.146 (7.350-7.450); ABG PO2 60.6 mmHg (75.0-100.0); AaDO2 601.1 mmHg; COHb 0.3 % (0.5-1.5); MetHb 0.1 % (0.0-1.5); O2Hb 87.3 % (94.0-97.0); PEEP,BG 10 cm H2O; SITE, ABG Right Radial; VENT MODE, BG AC 100%; VT, ABG 400 mL
[2020-02-14 09:13] LABS: ALANINE AMINOTRANSFERASE 254 U/L (12-78); ALKALINE PHOSPHATASE 82 U/L (46-116); ASPARTATE AMINOTRANSFERASE 702 U/L (15-37); BILIRUBIN,TOTAL 0.4 mg/dL (0.2-1.0); CARBON DIOXIDE 16 mmol/L (21-32); CHLORIDE 105 mmol/L (98-107); MAGNESIUM 2.2 mg/dL (1.8-2.4); POTASSIUM 5.2 mmol/L (3.5-5.1); SODIUM SERUM 143 mmol/L (136-145); TOTAL PROTEIN, SERUM 5.8 g/dL (6.4-8.2)
[2020-02-14 09:19] LABS: CALCIUM, SERUM 5.8 mg/dL (8.5-10.1); CREATININE 8.5 mg/dL (0.6-1.3); GLUCOSE 522 mg/dL (74-106); UREA NITROGEN, BLOOD 82 mg/dL (7-18)
[2020-02-14] MEDS: PANTOPRAZOLE 40 MG VIAL IV SCH (09:27)
--- NOTE | 2020-02-14 09:30 | NUR ---
ICU/RN: PER MD NO OG/NG TUBE AT THIS TIME. PO ZOLOFT HELD. PT NPO. NORVASC HELD DUE TO PT BEING ON VASOPRESSOR
--- NOTE | 2020-02-14 10:15 | NUR ---
ICU/RN: HEPARIN DRIP STOPPED PER MD ORDER. PTT >170. WILL RECHECK IN 2 HOURS PER MD ORDERS.
[2020-02-14] MEDS: AZITHROMYCIN 500 MG in IV D5W 250 ML IV SCH (11:43)
--- NOTE | 2020-02-14 12:00 | NUR ---
ICU/RN: PT CONVERTED TO A.FIB. NOTIFIED. ORDERS RECEIVED FOR AMIO BOLUS THEN DRIP. WILLL CONTINUE TO MONITOR AND ASSESS
--- NOTE | 2020-02-14 12:15 | NUR ---
PTT 137, PER HOLD HEPARIN FOR 2 MORE HOURS AND IF <90 PTT RESTART AT 55 UNITS/HR
[2020-02-14] MEDS ORDERED: AMIODARONE 450 MG in IV D5W 250 ML IV PRN (13:30)
[2020-02-14] MEDS ORDERED: AMIODARONE 150 MG in IV D5W 100 ML IV ONE (13:30)
[2020-02-14] MEDS: AMIODARONE 450 MG in IV D5W 250 ML IV PRN ×2 (15:02→20:42)
[2020-02-14] MEDS: SOD FERRIC GLUC 125 MG in IV NS 0.9% 100 ML IV SCH (15:24)
--- NOTE | 2020-02-14 15:42 | NUR ---
ICU/RN: PER INSULIN DRIP NEEDS TO BE INCREASED TO 18 UNITS/HR HOWEVER TO CONTINUE USING ALGORITHM 3. ORDERS PLACED
--- NOTE | 2020-02-14 16:19 | NUR ---
ICU/RN: RESTARTED AT 550 UNITS/HR PER . PTT 78.7. WILL RECHECK AT 2200
[2020-02-14 17:06] LABS: *ANA ANTI-CENTROMERE B AB <0.2 AI (0.0-0.9); *ANA ANTI-DNA(DS) AB, QN 2 IU/mL (0-9); *ANA ANTI-JO-1 <0.2 AI (0.0-0.9); *ANA ANTICHROMATIN ANTIBODY 0.2 AI (0.0-0.9); *ANA RNP ANTIBODIES <0.2 AI (0.0-0.9); *ANA SJOGREN'S ANTI-SS-A <0.2 AI (0.0-0.9); *ANA SJOGREN'S ANTI-SS-B <0.2 AI (0.0-0.9); *ANAANTI-SCLERODERMA-70 AB 0.2 AI (0.0-0.9); *ANASMITH AB <0.2 AI (0.0-0.9)
--- NOTE | 2020-02-14 18:00 | NUR ---
ICU/RN: OF SUGAR >350, ORDERS RECEIVED FROM TO INCREASE INSULIN TO 20 UNITS/HR BUT REMAIN IN ALGORITHM 3. FOLLOWED. NOW INFUSING AT 20 UNITS
--- NOTE | 2020-02-14 19:32 | NUR ---
ICU/RN ENDING NOTES,AM REPORT ENDORSED TO NIGHT NURSE. PT CONTINUE TO BE UNRESPONSIVE. ON VENT SETTINGS ORDERED. INSULIN DRIP PER PROTOCOL, HEPARIN INFUSING AT 550 UNITS/HR, BICARD, AMIO AND LEVO PER PROTOCOL. PICC AND PIV PATENT AND INTACT. NO OG/NG TUBE AT THIS TIME. PT NPO. PTT ORDERED FOR RECHECK AT 2200. ALL NEEDS ATTENDED TO, SAFETY MEASURES TAKEN, BED IN LOW POSITION, SIDE RAILS UP, CALL LIGHT WITHIN REACH. UPDATES GIVEN TO FAMILY REGARDING POOR PROGNOSIS.
--- NOTE | 2020-02-14 19:45 | NUR ---
RN NOTES RECEIVED CRITICALLY ILL PATIENT ON ETT 7.5 AND 25 CM IN POSITION WITH VENT SETTING AC 24 TV 450 FIO2 100% AND PEEP 12. SATURATION 86%. WITH LOW GRADE TEMP. 99.6. ISOLATION PRECAUTION STRICTLY OBSERVED FOR COVID POSITIVE. AFIB ON TELE MONITOR. IV SITE ON SHAI PICC LINE RUNNING WITH HEPARIN DRIP @ 550 U/HR, LEVOPHED @ 0.4 MCK/KG/MIN , INSULIN @ 20 U/HR. AMIODARONE DRIP @ 1 MG/MIN AND LEJ G 20 WITH SODIUM BICARB @ 100 ML/HR TOLERATED WELL. IV SITE INCLUDING RH G 22 AND LH G 20 ARE ALL INTACT AND PATENT. PATIENT IS NON RESPONSIVE. NON REACTIVE TO LIGHT. WITH GOOD PULSES. PALE LOOKING COOL TO TOUCH. ACCUCHECK Q1H CONTINUE FOR NON DKA PATIENT. KEPT PT CLEAN AND DRY. WILL TURN AND REPOSITION MUCH POSSIBLE.
--- NOTE | 2020-02-14 20:45 | NUR ---
UNABLE TO COLLECT SPUTUM. PT HAS NO SECRETIONS AND NO GAG REFLEX. RN NOTIFIED. WILL TRY AGAIN LATER.
--- NOTE | 2020-02-14 23:48 | NUR ---
RN NOTES INFORMED OIL BURNER INSTALLER PÉREZ SIMS REGARDING PATIENT LATEST PTT 96.9 WITH NEW ORDER TO CHECK CBC LEVEL IF THE PLATELET IS LOW WILL STOP THE HEPARIN. ACKNOWLEDGES ORDER.
[2020-02-15] VITALS (95 sets, daily range): BP systolic 64–134; BP diastolic 25–91
[2020-02-15] MEDS: BLOOD SUGAR DIAGNOSTIC 1 EACH STRIP IN SCH ×23 (00:08→23:03)
[2020-02-15 00:52] LABS: BASOPHILS % (AUTO) 0.2 % (0.0-2.0); HEMATOCRIT 23 % (39-51); HEMOGLOBIN 7.4 g/dL (13.5-17.5); LYMPHOCYTES # (AUTO) 0.5 /CMM (0.8-4.8); LYMPHOCYTES % (AUTO) 3.6 % (20.0-44.0); MEAN CORPUSCULAR HGB CONC 33 g/dl (31.0-36.0); MEAN CORPUSCULAR VOLUME 92 fL (80-96); MONOCYTES # (AUTO) 0.4 /CMM (0.1-1.30); MONOCYTES % (AUTO) 3.5 % (2.0-12.0); NEUTROPHILS # (AUTO) 11.7 /CMM (1.8-8.9); NEUTROPHILS % (AUTO) 92.7 % (43.0-81.0); PLATELET COUNT (AUTO) 69 /CMM (150-450); RED BLOOD CELL COUNT(AUTO) 2.47 MIL/uL (4.5-6.0); WHITE BLOOD COUNT (AUTO) 12.6 K/uL (4.3-11.0)
[2020-02-15 01:59] LABS: LYMPHOCYTES % (MANUAL) 5 % (16-48); NEUTROPHILS % (MANUAL) 93 (42-76)
[2020-02-15 02:00] LABS: MONOCYTES % (MANUAL) 2 % (0-11.0)
[2020-02-15] MEDS: NOREPINEPHRINE 32 MG in IV NS 0.9% 218 ML IV PRN ×3 (02:00→23:16)
--- NOTE | 2020-02-15 02:50 | NUR ---
RN NOTES RAVINDRA SIMS ON THE FLOOR INFORMED HER REGARDING PATIENT PLATELET 69 AND BS IS BEEN >360 MG/DL WITH ORDER TO HOLD HEPARIN UNTIL DR. HERRERA COME ANS TO MOVE UP THE INSULIN DRIP TO ALGORITHM 4. INSULIN DRIP CHANGES TO 26 UNIT/HR. WILL CLOSELY MONITOR.
[2020-02-15] MEDS: INS (REG) DRIP 100 U/100 ML NS IV PRN ×8 (03:50→21:25)
[2020-02-15 04:42] LABS: BASOPHILS % (AUTO) 0.1 % (0.0-2.0); HEMATOCRIT 22 % (39-51); HEMOGLOBIN 7.2 g/dL (13.5-17.5); LYMPHOCYTES # (AUTO) 0.5 /CMM (0.8-4.8); LYMPHOCYTES % (AUTO) 4.1 % (20.0-44.0); MEAN CORPUSCULAR HGB CONC 34 g/dl (31.0-36.0); MEAN CORPUSCULAR VOLUME 90 fL (80-96); MONOCYTES # (AUTO) 0.5 /CMM (0.1-1.30); MONOCYTES % (AUTO) 3.6 % (2.0-12.0); NEUTROPHILS # (AUTO) 11.6 /CMM (1.8-8.9); NEUTROPHILS % (AUTO) 92.2 % (43.0-81.0); PLATELET COUNT (AUTO) 65 /CMM (150-450); RED BLOOD CELL COUNT(AUTO) 2.38 MIL/uL (4.5-6.0); WHITE BLOOD COUNT (AUTO) 12.6 K/uL (4.3-11.0)
[2020-02-15 04:57] LABS: CARBON DIOXIDE 19 mmol/L (21-32); CHLORIDE 101 mmol/L (98-107); MAGNESIUM 1.7 mg/dL (1.8-2.4); POTASSIUM 4.1 mmol/L (3.5-5.1); SODIUM SERUM 141 mmol/L (136-145)
[2020-02-15 05:18] LABS: CALCIUM, SERUM 5.4 mg/dL (8.5-10.1); GLUCOSE 423 mg/dL (74-106); UREA NITROGEN, BLOOD 81 mg/dL (7-18)
[2020-02-15 05:19] LABS: CREATININE 9.3 mg/dL (0.6-1.3); PHOSPHORUS 8.3 mg/dL (2.5-4.9)
[2020-02-15 06:13] LABS: NEUTROPHILS % (MANUAL) 95 (42-76)
[2020-02-15 06:14] LABS: LYMPHOCYTES % (MANUAL) 3 % (16-48); MONOCYTES % (MANUAL) 2 % (0-11.0)
[2020-02-15] MEDS: PIPERACILLIN /TAZOBACTAM 2.25 G in IV D5W 50 ML IV SCH ×2 (06:15→13:00)
--- NOTE | 2020-02-15 07:35 | NUR ---
RN NOTES PATIENT REMAINED HEMODYNAMICALLY UNSTABLE WITH A LOT OF CRITICAL LAB VALUES SEE CHART. CONTINUE WITH ETT AC 28 TV 450 [id number]% PEEP 12 . SATURATION REMAINED ON <91% BARELY ON 90'S IV DRIPS LEVOPHED, SODIUM BICARBS,, INSULIN AND AMIODARONE DRIPS ONGOING TITRATED ORDERED PROTOCOL. ACCU CHECK Q1H CONTINUE. ALL IV SITE ARE INTACT AND PATENT. KEPT PT CLEAN AND DRY. ENDORSED CONTINUITY OF CARE TO AM NURSE.
--- NOTE | 2020-02-15 07:45 | NUR ---
ICU/RN: INITIAL NOTES,AM RECEIVED REPORT FROM NIGHT NURSE. PT NON RESPONSIVE, DOES NOT REACT TO PAINFUL STIMULI. PUPILS NON REACTIVE. ETT 7.5/25 AT THE LIp, GCS 3. ON VENT SETTINGS ORDERED. A.FIB ON TELE, AMIO DRIP INFUSING. INSULIN INFUSING PER MD ORDERS. ON ALGORITHM 3. RIGHT UPPER ARM PICC LINE PATENT AND INTACT, PIVS PATENT, NO S/S OF INFECTION OR INFILTRATION NOTED. BICARB INFUSING PER ORDERS. ALL NEEDS WILL BE ATTENDED TO, SAFETY MEASURES TAKEN, BED IN LOW POSITION, SIDE RAILS UP, CALL LIGHT WITHIN REACH.
--- NOTE | 2020-02-15 07:56 | NUR ---
WOUND CARE CONSULT: REVIEWED CHART, NURSING DOCUMENTATION AND PHOTO WHICH INDICATES INTACT DEEP TISSUE INJURY WITH DISCOLORATION TO SACRAL/BUTTOCKS AREA WELL INCONTINENCE ASSOCIATED SKIN DAMAGE TO GLUTEAL CREASE. PER NURSING STAFF, PT HAS HAD LOOSE STOOLS. PT NOTED TO HAVE MULTIPLE CO-MORBIDITIES INCLUDING COVID 19 INFECTION, SEPSIS, PNEUMONIA, PANCYTOPENIA AND ACUTE KIDNEY INJURY. PT IS CURRENTLY INTUBATED. DUE TO MULTIPLE CO-MORBIDITIES, FURTHER SKIN BREAKDOWN MAY BE UNAVOIDABLE. FIRST STEP LOW AIRLOSS MATTRESS IS ORDERED. ALL SKIN PROTECTION AND WOUND CARE RECOMMENDATIONS DISCUSSED WITH NURSING STAFF. MD IN AGREEMENT WITH PLAN OF CARE.
[2020-02-15] MEDS: DEXAMETHASONE SOD PHOSPHATE 10 MG/ML VIAL IV SCH (08:09)
[2020-02-15] MEDS: PANTOPRAZOLE 40 MG VIAL IV SCH (08:10)
[2020-02-15] MEDS: AMLODIPINE BESYLATE 10 MG TABLET PO SCH (08:11)
[2020-02-15] MEDS: SERTRALINE HCL 50 MG TABLET PO SCH (08:11)
[2020-02-15] MEDS: INSULIN REGULAR, HUMAN 100 UNIT/ML 3 ML VIAL SQ PRN ×2 (08:34→11:34)
[2020-02-15 09:00] LABS: ABG OXYGEN SATURATION 80.8 % (92.0-98.5); ABG PCO2 43.3 mmHg (35.0-45.0); ABG PH 7.194 (7.350-7.450); ABG PO2 54.3 mmHg (75.0-100.0); AaDO2 615.4 mmHg; COHb 0.6 % (0.5-1.5); MetHb 0.2 % (0.0-1.5); O2Hb 80.2 % (94.0-97.0); PEEP,BG 12 cm H2O; SITE, ABG Right Radial; VT, ABG 450 mL
--- NOTE | 2020-02-15 09:59 | NUR ---
rn note: Informed primary nurse of Troponin level of 13.412
--- NOTE | 2020-02-15 10:13 | NUR ---
ICU/RN: VENT CHANGES, TV 500, PEEP 15. WILL CONTINUE TO MONITOR
[2020-02-15] MEDS: Sodium Bicarbonate 150 MEQ in IV D5W 1,000 ML IV PRN ×2 (11:48→23:12)
--- NOTE | 2020-02-15 12:00 | NUR ---
ICU/RN: IV AMIO D/C'D PER . ORDERS FOR PO AMIO RECEIVED. WILL INSERT NG TUBE FOR ADMINISTRATION
--- NOTE | 2020-02-15 12:30 | NUR ---
ICU/RN: OROGASTRIC TUBE INSERTED, TUBE PLACEMENT VERIFIED WITH AUSCULTATION. VERIFIED WITH ANOTHER RN. FOR MEDICATIONS ONLY
[2020-02-15] MEDS: AMIODARONE HCL 200 MG TABLET PO SCH ×2 (13:00→17:31)
--- NOTE | 2020-02-15 13:00 | NUR ---
ICU/RN: RECEIVED TLO ORDERS FROM TO INCREASE INSULIN DRIP 2UNITS PER HOUR TO A MAX OF 40 UNITS/HR TO MAINTAIN BLOOD GLUCOSE <250. ALSO WE ARE TO CONTINUE ON ALGORITHM 4. WILL CONTINUE TO MONITOR AND ASSESS.
[2020-02-15] MEDS ORDERED: MEROPENEM 500 MG in IV NS 0.9% 50 ML IV SCH (15:00)
[2020-02-15] MEDS: SOD FERRIC GLUC 125 MG in IV NS 0.9% 100 ML IV SCH (15:09)
--- NOTE | 2020-02-15 18:44 | NUR ---
RT NOTE Pt received on [facility] vent via 7.5 ETT @ 25cm lipline. ABG done and vent settings titrated per MD orders. Vent plugged into red outlet w [facility]. Addendum: 02/15/20 at 1846 by MARY CRUZ RT Amended: Links added.
--- NOTE | 2020-02-15 19:00 | NUR ---
RECEIVED PATIENT ORALLY INTUBATED TO THE VENTILATOR ON AC MODE, UNRESPONSIVE ,NO COUGH,NO GAG,NO CORNEAL REFLEX, NO RESPONSE TO ANY STIMULUS. NOT IN ANY DISTRESS,BREATHING REGULAR AND NON LABORED. + COVID ,ON CONTACT/ AND ENHANCED DROPLET ISOLATION. ON LEVOPHED DRIP FOR BP SUPPORT, NAHCO3 DRIP ,INSULIN DRIP( FS Q 1 HR).
--- NOTE | 2020-02-15 19:25 | NUR ---
ICU/RN ENDING NOTES,AM REPORT ENDORSED TO NIGHT NURSE FOR RAMIRO. PT NON RESPONSIVE, ON VENT SETTINGS ORDERED. INSULIN INFUSING ORDERED. LEVO FOR BP SUPPORT. SON OF PT CAME TO VISIT. UPDATES GIVEN. POOR PROGNOSIS. FAMILY WILL DECIDE ON PT CARE. ALL NEEDS ATTENDED TO, SAFETY MEASURES TAKEN, BED IN LOW POSITION, SIDE RAILS UP, CALL LIGHT WITHIN REACH. BICARB INFUSING ORDERED.
--- NOTE | 2020-02-15 20:00 | NUR ---
FS/BS NOW WITHIN SLIDING SCALE RANGE(358), WILL SLOWLY GO DOWN BY 2 UNITS (UNTIL @ REGULAR SLIDING SCALE DOSE RATE).
[2020-02-15] MEDS ORDERED: VANCOMYCIN 1.25 GM in IV D5W 250 ML IV SCH (21:00)
--- NOTE | 2020-02-15 22:00 | NUR ---
BLOOD SUGAR FINGERB STICK STILL 342, DRIP INCEASED TO 36 UNITS /HR.V/S STABLE ON LEVOPHED DRIP O.5 /KG/MIN
[2020-02-16] VITALS (48 sets, daily range): BP systolic 77–135; BP diastolic 36–76
--- NOTE | 2020-02-16 | NUR ---
REMAINS UNRESPONSIVE/COMATOSE,NO COUGH ,NO GAG, NO CORNEAL REFLEX.BLOOD SUGAR STILL IN THE 300'S (307), BP HOLDING UP ABOVE 90'S SYSTOLIC.
[2020-02-16] MEDS: BLOOD SUGAR DIAGNOSTIC 1 EACH STRIP IN SCH ×13 (00:10→13:31)
[2020-02-16] MEDS: INS (REG) DRIP 100 U/100 ML NS IV PRN ×8 (00:32→13:30)
--- NOTE | 2020-02-16 02:00 | NUR ---
STATUS UNCHANGED.SATURATION 99-100 %,NOT IN ANY DISTRESS.STILL ON INSULIN DRIP .qf=[id number] , DRIP AT 36 UNITS/HR
--- NOTE | 2020-02-16 03:30 | NUR ---
AM BATH DONE.POST AM CARE NOTED PATIENT TO BE VERY PALE ,UNABLE TO GET OXYGEN SATURATION READING ,ALL EXTREMITIES VERY COLD. OBSERVED HEART RATE DOWN IN THE 60'S PROGRESSED GRADUALLY INTO 50'S WITH WIDE COMPLEX RHYTHM ,BPS DROP IN THE 60'S , LEVOPHED DRIP INCREASED TO MAX DOSE 1 MCG/KG/MIN.
--- NOTE | 2020-02-16 03:50 | NUR ---
RT NOTE PT CODED AT THIS TIME. PERFORMED CPR WITH ADMINISTERING 100% OXYGEN FROM VENTILATOR. RN @ BEDSIDE.
--- NOTE | 2020-02-16 03:55 | NUR ---
OBSERVED IN JUNCTIONAL RHYTHM TO PEA ,CODE CALLED @ .
--- NOTE | 2020-02-16 04:05 | NUR ---
CODE BLUE OVER WITH ROSC, BP SYSTOLIC DROP AGAIN IN THE 60'S SYSTOLIC ,LEVOPHED DRIP MAINTAINED @ 1 MCG/KG/MIN. SATURATION STAYING IN THE 70'S . RESPIRATORY THERAPIST AT BEDSIDE TRYING TO GET A GOOD READ OF OXYGEN SATURATION( VERY COLD EXTREMITIES). 0430 O2 SATURATION 87-90%..VISUAL ASSOCIATE ENIO SIMS @ BEDSIDE,ORDERED TO DO ABG IN 30 MINS.
--- NOTE | 2020-02-16 04:15 | NUR ---
FAMILY WAS CALLED,NO ANSWER FROM BOTH SONS,MESSAGE LEFT ABOUT ARSLAN PATIENT'S CONDITION.
[2020-02-16 05:02] LABS: CARBON DIOXIDE 18 mmol/L (21-32); CHLORIDE 98 mmol/L (98-107); GLUCOSE 314 mg/dL (74-106); MAGNESIUM 1.8 mg/dL (1.8-2.4); POTASSIUM 4.5 mmol/L (3.5-5.1); SODIUM SERUM 140 mmol/L (136-145)
--- NOTE | 2020-02-16 05:10 | NUR ---
ABG DRAWN BY RT.OXYGEN SATURATION AGAIN GOING DOWN 85-87%.
--- NOTE | 2020-02-16 05:30 | NUR ---
ABG RESULTS RELAYED TO ENIO SIMS NP. PH=6.98, PO2-54.8, PCO2= 44.8,HCO3-10.4,SAT.-72.9. ORDRED TO GIVE 2 AMPS OF NAHCO3 .NOTHING ELSE SHE CAN ADJUST WITH THE VENTILATOR SETTINGS,PATIENT ON 100 % FIO2, PEEP=15.
[2020-02-16] MEDS ORDERED: SODIUM BICARBONATE SYR 50 MEQ/50 ML DISP.SYRIN ONE (05:35)
--- NOTE | 2020-02-16 06:00 | NUR ---
REMAINS CRITICALLY UNSTABLE WITH O2 SATURATION NOW IN THE 70'S, COMATOSE,NO RESPONSE.PUPILS NON REACTIVE. ON LEVOPHED DRIP @ MAX DOSE ,BP STABLE IN THE 90'S SYSTOLIC. STILL ON NAHCO3 DRIP , INSULIN DRIP.NOW VZ=168.
--- NOTE | 2020-02-16 06:30 | NUR ---
PATIENT'S SON CALLED(ZAINAB),UPDATED HIM ON PATIENT'S CONDITION,HE UNDERSTANDS HOW SICK HIS DAD IS ,BUT FOR NOW WANTS EVERYTHING TO BE DONE.
[2020-02-16 07:10] LABS: BASOPHILS # (AUTO) 0.1 /CMM (0.0-0.2); BASOPHILS % (AUTO) 0.3 % (0.0-2.0); HEMATOCRIT 21 % (39-51); LYMPHOCYTES # (AUTO) 0.8 /CMM (0.8-4.8); LYMPHOCYTES % (AUTO) 4.4 % (20.0-44.0); MEAN CORPUSCULAR HGB CONC 33 g/dl (31.0-36.0); MEAN CORPUSCULAR VOLUME 90 fL (80-96); MONOCYTES # (AUTO) 0.6 /CMM (0.1-1.30); NEUTROPHILS # (AUTO) 17.4 /CMM (1.8-8.9); NEUTROPHILS % (AUTO) 92.3 % (43.0-81.0); PLATELET COUNT (AUTO) 69 /CMM (150-450); RED BLOOD CELL COUNT(AUTO) 2.34 MIL/uL (4.5-6.0); WHITE BLOOD COUNT (AUTO) 18.9 K/uL (4.3-11.0)
--- NOTE | 2020-02-16 07:20 | NUR ---
RN INITIAL NOTES RECEIVED PT INTUBATED, ON VENT. HOB ELEVATED. FI02 100%. PT NO RESPONSE TO TACTILE AND PAIN STIMULI. NO GAG NOR COUGH REFLEX NOTED. SHAI PICC IN PLACE. ON LEVOPHED AND INSULIN DRIP. WILL TITRATE ACCORDINGLY. ALVAREZ IN PLACE. NO OUTPUT NOTED. BLE ELEVATED. WILL CLOSELY MONITOR.
[2020-02-16 08:06] LABS: CALCIUM, SERUM 5.4 mg/dL (8.5-10.1); CREATININE 10.4 mg/dL (0.6-1.3); PHOSPHORUS 8.5 mg/dL (2.5-4.9); UREA NITROGEN, BLOOD 89 mg/dL (7-18)
[2020-02-16] MEDS ORDERED: SODIUM BICARBONATE SYR 50 MEQ/50 ML DISP.SYRIN IV STA (08:10)
[2020-02-16] MEDS: PANTOPRAZOLE 40 MG VIAL IV SCH (08:14)
[2020-02-16] MEDS: DEXAMETHASONE SOD PHOSPHATE 10 MG/ML VIAL IV SCH (08:15)
[2020-02-16] MEDS: NOREPINEPHRINE 32 MG in IV NS 0.9% 218 ML IV PRN (08:37)
[2020-02-16] MEDS ORDERED: EPINEPHRINE (1:10,000) SYRINGE 1 MG/10 ML DISP.SYRIN ONE (09:23)
--- NOTE | 2020-02-16 12:00 | NUR ---
RN NOTES CALLED DR PITTMAN REGARDING PT'S BLOOD SUGAR, 202. ON INSULIN DRIP AT 38U/H. CLARIFYING ORDER FOR TITRATING INSULIN DOWN. PER MD, KEEP PT ON INSULIN DRIP AT 38U/H. STILL ON BLOOD SUGAR CHECK Q1. WILL CLOSELY MONITOR
[2020-02-16] MEDS: SOD FERRIC GLUC 125 MG in IV NS 0.9% 100 ML IV SCH (13:53)
--- NOTE | 2020-02-16 14:07 | NUR ---
RN NOTES NOTED BRADYCARDIC THEN ASYSTOLE ON MONITOR. CODE BLUE ACTIVATED. PLEASE SEE CODE BLUE RECORD
[2020-02-16] MEDS ORDERED: DOPamine 400 MG/D5W 250 ML RTU BAG ONE (14:43)
[2020-02-16] MEDS ORDERED: D5W IV ONE (14:43)
[2020-02-16] MEDS ORDERED: AMIODARONE 450 MG/9 ML VIAL IV ONE (14:43)
--- NOTE | 2020-02-16 15:30 | NUR ---
RN NOTES [id number] CALLED [facility], SPOKE WITH ROXANE.CASE # [id number]. DR PITTMAN AND GUILLERMO (MICKEY) NOTIFIED. WILL BRING REMAINS TO [facility]. Addendum: 02/16/20 at 1621 by DAMIAN LONG RN PERSONAL BELONGINGS WILL BE P/U BY GUILLERMO (MICKEY)
--- NOTE | 2020-02-16 16:30 | NUR ---
MARLEN NOTES GUILLERMO (SON) CALLED. WILL NOT BE ABLE TO P/U BELONGINGS TODAY. PER GUILLERMO, OK TO PUT BELONGINGS WITH THE PT REMAINS. Addendum: 02/16/20 at 1836 by DAMIAN LONG RN [id number] FAMILY AGREED TO THROW BELONGINGS DUE TO BETO
[2020-02-16] MEDS ORDERED: VANCOMYCIN 1.25 GM in IV D5W 250 ML IV SCH (20:00)
== END 2020-02-16 14:34 | disposition expired | DRG 871 ==
LOC: ER 16:02 → TELE2 20:15 → ICU 02-12 21:14
PROVIDERS: ADMIT Nurse Practitioner Acute Care; ATTEND Internal Medicine
PROC: 5A1945Z Respiratory Ventilation, 24-96 Consecutive Hours (ICD-10-PCS; principal; 2020-02-12)
PROC: 5A12012 Performance of Cardiac Output, Single, Manual (ICD-10-PCS; 2020-02-12)
PROC: 0BH18EZ Insertion of Endotracheal Airway into Trachea, Via Natural or Artificial Opening Endoscopic (ICD-10-PCS; 2020-02-12)
PROC: 02HV33Z Insertion of Infusion Device into Superior Vena Cava, Percutaneous Approach (ICD-10-PCS; 2020-02-12)
PROC: B548ZZA Ultrasonography of Superior Vena Cava, Guidance (ICD-10-PCS; 2020-02-12)
PROC: XW13325 Transfusion of Convalescent Plasma (Nonautologous) into Peripheral Vein, Percutaneous Approach, New Technology Group 5 (ICD-10-PCS; 2020-02-12)
PROC: 5A12012 Performance of Cardiac Output, Single, Manual (ICD-10-PCS; 2020-02-16)
DX: A41.89 Other specified sepsis (principal); U07.1 COVID-19; J12.89 Other viral pneumonia; I21.4 Non-ST elevation (NSTEMI) myocardial infarction; J96.01 Acute respiratory failure with hypoxia; J15.9 Unspecified bacterial pneumonia; K72.00 Acute and subacute hepatic failure without coma; N17.0 Acute kidney failure with tubular necrosis; R65.21 Severe sepsis with septic shock; I21.A1 Myocardial infarction type 2; D68.69 Other thrombophilia; G93.1 Anoxic brain damage, not elsewhere classified; E87.4 Mixed disorder of acid-base balance; D61.818 Other pancytopenia; I69.354 Hemiplegia and hemiparesis following cerebral infarction affecting left non-dominant side; N18.4 Chronic kidney disease, stage 4 (severe); E87.5 Hyperkalemia; I25.10 Atherosclerotic heart disease of native coronary artery without angina pectoris; F32.9 Major depressive disorder, single episode, unspecified; E78.5 Hyperlipidemia, unspecified; E11.65 Type 2 diabetes mellitus with hyperglycemia; D50.9 Iron deficiency anemia, unspecified; I46.9 Cardiac arrest, cause unspecified; I12.9 Hypertensive chronic kidney disease with stage 1 through stage 4 chronic kidney disease, or unspecified chronic kidney disease; E11.22 Type 2 diabetes mellitus with diabetic chronic kidney disease; I48.91 Unspecified atrial fibrillation; Z79.02 Long term (current) use of antithrombotics/antiplatelets; Z79.84 Long term (current) use of oral hypoglycemic drugs; Z87.442 Personal history of urinary calculi; M89.9 Disorder of bone, unspecified; N20.0 Calculus of kidney; R53.1 Weakness; E83.9 Disorder of mineral metabolism, unspecified; R74.01 Elevation of levels of liver transaminase levels
CPT/HCPCS: 31720; 36415; 36569; 36600; 71045-TC; 76770-TC; 80048-TC; 80053-TC; 80061-TC; 80076-TC; 80202-TC; 81000-TC; 82533; 82728-TC; 82784; 82803-TC; 82962-TC; 83540-TC; 83605-TC; 83615-TC; 83735-TC; 84100-TC; 84155; 84165; 84439-TC; 84443-TC; 84484-TC; 85025-TC; 85378-TC; 85610-TC; 85730-TC; 86140-TC; 86225; 86235; 86334; 86431-TC; 86480; 86850-TC; 87040-TC; 87081-TC; 87086-TC; 92611-TC; 92950-TC; 93308-TC; 94002-TC; 94003-TC; 94760-TC; 94799-TC; A4216; C1751; C9113; G0378; J0171; J0282; J0456; J1100; J1200; J1265; J1644; J1815; J2020; J2185; J2543; J2916; J3262; J3370; J3490; J7030; J7050; J7060; J7070; P9017-BL; U0003-CS